=== PATIENT | female | born 1965 | race Two or more races ===

== ENCOUNTER 2019-03-10 19:36 | Inpatient (IN) | payer OTHER ==
[~2019-03-10] VITALS: Ht 165.1 cm; Wt 79.5 kg
[2019-03-10] MEDS ORDERED: CIP250 PO (20:02)
[2019-03-10] MEDS ORDERED: RISP3 PO (20:02)
[2019-03-10] MEDS ORDERED: METF-960 PO (20:03)
[2019-03-10 20:36] LABS: BASOPHILS % (AUTO) 0.7 % (0.0-2.0); EOSINOPHILS % (AUTO) 3.8 % (1.0-6.0); HEMATOCRIT 35.9 % (36-46); LYMPHOCYTES # (AUTO) 2.7 K/uL (1.0-4.8); LYMPHOCYTES % (AUTO) 36.9 % (22.0-44.0); MEAN CORPUSCULAR HEMOGLOBIN 29.8 pg (26.0-34.0); MEAN CORPUSCULAR HGB CONC 33.3 G/dL (31.0-37.0); MEAN CORPUSCULAR VOLUME 90 fL (80-100); MONOCYTES # (AUTO) 0.6 K/uL (0.1-1.0); MONOCYTES % (AUTO) 8.2 % (2.0-9.0); NEUTROPHILS # (AUTO) 3.6 K/uL (1.8-7.7); NEUTROPHILS % (AUTO) 50.4 % (40.0-70.0); PLATELET COUNT (AUTO) 219 K/uL (150-450); RED BLOOD CELL COUNT(AUTO) 4.01 MIL/uL (4.00-5.20); RED CELL DISTRIBUTION WIDTH 13.7 % (11.5-14.5)
[2019-03-10 20:45] LABS: ANION GAP 7 mmol/L (8-16); CARBON DIOXIDE 28 mmol/L (22-29); CHLORIDE 102 mmol/L (98-107); CREATININE 0.73 mg/dL (0.60-1.30); GLOMERULAR FILTR. RATE CALC > 60 mL/min (>60); GLUCOSE,RANDOM 104 mg/dL (70-110); POTASSIUM 3.9 mmol/L (3.5-5.1); SODIUM SERUM 137 mmol/L (136-145); UREA NITROGEN, BLOOD 11 mg/dL (7-18)
[2019-03-10] MEDS ORDERED: ONDANSETRON HCL 4 MG/2 ML VIAL IVP PRN ×2 (20:45→22:15)
[2019-03-10] MEDS ORDERED: ACETAMINOPHEN 325 MG TABLET PO PRN ×2 (20:45→22:15)
[2019-03-10 20:50] LABS: ALANINE AMINOTRANSFERASE 37 U/L (12-78); ALBUMIN 3.6 g/dL (3.4-5.0); ALKALINE PHOSPHATASE 173 U/L (46-116); ASPARTATE AMINOTRANSFERASE 27 U/L (15-37); BILIRUBIN,TOTAL 0.1 mg/dL (0.1-1.0); TOTAL PROTEIN, SERUM 7.6 g/dL (6.4-8.2)
[2019-03-10 21:00] VITALS: BP 123/62
[2019-03-10] MEDS ORDERED: 0.9% SODIUM CHLORIDE 10 ML SYRINGE IVP PRN (22:15)
[2019-03-10] MEDS: ZOLPIDEM TARTRATE 5 MG TABLET PO PRN (22:28)
[2019-03-11 07:38] VITALS: BP 115/65
[2019-03-11 08:06] LABS: BASOPHILS % (AUTO) 0.7 % (0.0-2.0); EOSINOPHILS % (AUTO) 4.4 % (1.0-6.0); HEMATOCRIT 32.9 % (36-46); HEMOGLOBIN 11.4 g/dL (12.0-16.0); LYMPHOCYTES % (AUTO) 30.4 % (22.0-44.0); MEAN CORPUSCULAR HEMOGLOBIN 30.9 pg (26.0-34.0); MEAN CORPUSCULAR HGB CONC 34.7 G/dL (31.0-37.0); MEAN CORPUSCULAR VOLUME 89 fL (80-100); MONOCYTES # (AUTO) 0.6 K/uL (0.1-1.0); NEUTROPHILS # (AUTO) 3.6 K/uL (1.8-7.7); NEUTROPHILS % (AUTO) 55.5 % (40.0-70.0); PLATELET COUNT (AUTO) 200 K/uL (150-450); RED CELL DISTRIBUTION WIDTH 13.9 % (11.5-14.5)
[2019-03-11 08:14] LABS: ANION GAP 8 mmol/L (8-16); CALCIUM, TOTAL 8.6 mg/dL (8.8-10.5); CARBON DIOXIDE 27 mmol/L (22-29); CHLORIDE 107 mmol/L (98-107); CREATININE 0.75 mg/dL (0.60-1.30); GLOMERULAR FILTR. RATE CALC > 60 mL/min (>60); GLUCOSE,RANDOM 107 mg/dL (70-110); POTASSIUM 3.8 mmol/L (3.5-5.1); SODIUM SERUM 142 mmol/L (136-145); UREA NITROGEN, BLOOD 13 mg/dL (7-18)
[2019-03-11] MEDS: PANTOPRAZOLE SODIUM 40 MG DR TABLET PO SCH (08:17)
[2019-03-11] MEDS: DOCUSATE SODIUM 100 MG CAPSULE PO SCH ×2 (08:17→20:12)
[2019-03-11] MEDS: FAMOTIDINE 10 MG/ML 2 ML VIAL IVP SCH ×2 (11:15→19:54)
[2019-03-11] MEDS: MULTIVITAMINS WITH MINERALS, THERAPEUTIC TABLET PO SCH (11:50)
[2019-03-11] MEDS: SERTRALINE HCL 50 MG TABLET PO SCH (11:50)
[2019-03-11 16:15] VITALS: BP 114/65
[2019-03-11 20:04] VITALS: BP 103/51
[2019-03-11] MEDS: ZOLPIDEM TARTRATE 5 MG TABLET PO PRN (20:12)
[2019-03-11 20:44] LABS: GLUCOMETER DEV NAME(LOC) 4E.2; GLUCOSE,POINT OF CARE 114 MG/DL (70-110)
[2019-03-12 04:53] VITALS: BP 108/76
[2019-03-12] MEDS: MULTIVITAMINS WITH MINERALS, THERAPEUTIC TABLET PO SCH (07:53)
[2019-03-12] MEDS: DOCUSATE SODIUM 100 MG CAPSULE PO SCH ×2 (07:53→20:27)
[2019-03-12] MEDS: PANTOPRAZOLE SODIUM 40 MG DR TABLET PO SCH (07:53)
[2019-03-12] MEDS: SERTRALINE HCL 50 MG TABLET PO SCH (07:53)
[2019-03-12 08:13] VITALS: BP 114/43
[2019-03-12 11:50] VITALS: BP 98/65
[2019-03-12 17:03] VITALS: BP 102/69
[2019-03-12 19:46] VITALS: BP 109/68
[2019-03-12] MEDS: ZOLPIDEM TARTRATE 5 MG TABLET PO PRN (20:27)
[2019-03-12] MEDS: FAMOTIDINE 10 MG/ML 2 ML VIAL IVP SCH (21:00)
[2019-03-13 05:15] VITALS: BP 102/55
[2019-03-13] MEDS: PANTOPRAZOLE SODIUM 40 MG DR TABLET PO SCH (08:00)
[2019-03-13] MEDS: MULTIVITAMINS WITH MINERALS, THERAPEUTIC TABLET PO SCH (08:00)
[2019-03-13] MEDS: SERTRALINE HCL 50 MG TABLET PO SCH (08:00)
[2019-03-13] MEDS: DOCUSATE SODIUM 100 MG CAPSULE PO SCH ×2 (08:00→20:15)
[2019-03-13] MEDS: FAMOTIDINE 10 MG/ML 2 ML VIAL IVP SCH ×2 (09:00→21:00)
[2019-03-13 09:02] VITALS: BP 117/70
[2019-03-13] MEDS: HYPROMELLOSE 0.5% 15 ML OPHTHALMIC SOLUTION OU SCH ×2 (16:46→20:15)
[2019-03-13 17:28] VITALS: BP 127/44
[2019-03-13] MEDS: ZOLPIDEM TARTRATE 5 MG TABLET PO PRN (20:15)
[2019-03-14 04:00] VITALS: BP 97/52
[2019-03-14] MEDS: FAMOTIDINE 10 MG/ML 2 ML VIAL IVP SCH (08:10)
[2019-03-14] MEDS: PANTOPRAZOLE SODIUM 40 MG DR TABLET PO SCH (08:13)
[2019-03-14] MEDS: MULTIVITAMINS WITH MINERALS, THERAPEUTIC TABLET PO SCH (08:13)
[2019-03-14] MEDS: DOCUSATE SODIUM 100 MG CAPSULE PO SCH (08:13)
[2019-03-14] MEDS: SERTRALINE HCL 50 MG TABLET PO SCH (08:13)
[2019-03-14] MEDS: HYPROMELLOSE 0.5% 15 ML OPHTHALMIC SOLUTION OU SCH ×2 (08:15→15:41)
[2019-03-14 08:20] VITALS: BP 103/56
[2019-03-14] MEDS ORDERED: SERT50TA12 PO (16:44)
[2019-03-14 16:58] VITALS: BP 104/59
== END 2019-03-14 19:00 | DRG 885 ==
LOC: EMS 19:38 → 6S 20:30
PROVIDERS: ADMIT Internal Medicine; ATTEND Internal Medicine
DX: F33.3 Major depressive disorder, recurrent, severe with psychotic symptoms (principal); R45.851 Suicidal ideations; E66.9 Obesity, unspecified; R51 Headache; Z91.5 Personal history of self-harm
CPT/HCPCS: 83735; G0480; J3490